=== PATIENT | male | born 1930 | race Caucasian/White ===

== ENCOUNTER 2019-01-31 19:31 | Emergency (ER) | payer MEDICARE ==
[~2019-01-31] VITALS: Ht 182.9 cm; Wt 74.8 kg
[2019-02-01 07:02] VITALS: BP 152/76
== END 2019-02-01 08:48 | disposition home or self-care (01) ==
LOC: EDBD 19:31 → ER 19:36
DX: S80.02XA Contusion of left knee, initial encounter (principal); W01.0XXA Fall on same level from slipping, tripping and stumbling without subsequent striking against object, initial encounter; Y93.89 Activity, other specified; Y92.89 Other specified places as the place of occurrence of the external cause; Y99.8 Other external cause status
CPT/HCPCS: 73560